=== PATIENT | female | born 1980 | race Caucasian/White ===

== ENCOUNTER 2021-07-18 07:52 | Emergency (ER) | payer BC ==
[2021-07-18] MEDS ORDERED: SODIUM CHLORIDE 0.9% 1,000 ML IV STA (08:31)
[2021-07-18] MEDS ORDERED: SODIUM CHLORIDE 0.9% 50 ML IVPB ONE (09:00)
[2021-07-18] MEDS ORDERED: BAMLANIVIMAB (EUA) 700 MG, ETESEVIMAB (EUA) 1,400 MG in SODIUM CHLORIDE 0.9% 50 ML IVPB ONE (09:30)
--- NOTE | 2021-07-18 09:32 | ED ---
SOB HPI - General Chief Complaint: Shortness of Breath Stated Complaint: Covid +, ELKIN Time Seen by Provider: 07/18/21 08:09 Source: patient, RN notes reviewed Mode of arrival: ambulatory Limitations: no limitations - History of Present Illness Initial Comments: Patient is a 40-year-old female with history of acid reflux, presenting to the emergency Department with complaints of worsening Covid symptoms. Patient states she tested positive for Covid 4 days ago, her symptoms started about one week ago. She has been having intermittent fevers, intermittent nausea, shortness of breath when she is trying to do her normal activities. She admits to mild cough, congestion. No chest pains, no vomiting, some mild diarrhea but that is since cleared. She states she has not taken any Tylenol Motrin for the fevers because she "wants to let it play out." She denies history of asthma or COPD, she is nonsmoker. Patient has no further complaints at this time. Upon arrival to the ER, her vital signs are normal. - Related Data Previous Rx's Medication Instructions Recorded Albuterol Inhaler [Ventolin Hfa 1 puff INHALATION RT-QID PRN #8 gm 07/18/21 Inhaler] Dexamethasone [Decadron] 6 mg PO DAILY 5 Days #5 tablet 07/18/21 Allergies Allergy/AdvReac Type Severity Reaction Status Date / Time No Known Allergies Allergy Verified 07/18/21 08:01 Review of Systems ROS Statement: Those systems with pertinent positive or pertinent negative responses have been documented in the HPI. ROS Other: All systems not noted in ROS Statement are negative. Past Medical History Additional Past Medical History / Comment(s): acid reflux History of Any Multi-Drug Resistant Organisms: None Reported Past Surgical History: Hernia Repair Past Psychological History: Anxiety Smoking Status: Never smoker Past Alcohol Use History: Occasional Past Drug Use History: None Reported General Exam - General Exam Comments Initial Comments: GENERAL: Patient is well-developed and well-nourished. Patient is nontoxic and in no acute distress. HEAD: Atraumatic, normocephalic. EYES: Pupils equal round and reactive to light, extraocular movements intact, sclera anicteric, conjunctiva are normal. Eyelids were unremarkable. ENT: Nares patent, oropharynx clear without exudates. Moist mucous membranes. NECK: Normal range of motion, supple without lymphadenopathy or JVD. LUNGS: Unlabored respirations. Breath sounds clear to auscultation bilaterally and equal. No wheezes rales or rhonchi. HEART: Regular rate and rhythm without murmurs, rubs or gallops. ABDOMEN: Soft, nontender, normoactive bowel sounds. No guarding, no rebound. No masses appreciated. MUSCULOSKELETAL: Normal extremities with adequate strength and normal range of motion, no pitting or edema. No clubbing or cyanosis. SKIN: Warm, Dry, normal turgor, no rashes or lesions noted. Limitations: no limitations Course Vital Signs 07/18/21 07/18/21 07/18/21 07:57 08:11 09:31 Temperature 98.4 F Pulse Rate 60 Respiratory 18 19 Rate Blood Pressure 122/85 O2 Sat by Pulse 88 L 100 Oximetry 07/18/21 09:39 Temperature Pulse Rate Respiratory 18 Rate Blood Pressure 110/81 O2 Sat by Pulse 100 Oximetry Medical Decision Making - Medical Decision Making Patient is a 40-year-old female with worsening viral type symptoms over the past week. She tested positive for Covid 4 days ago, symptoms began 7 days ago. Her vital signs are completely stable, she did have initial pulse ox of 88% however she was wearing fake nails and upon recheck on , she is 100% of room air. Her exam is unremarkable, she does qualify for monoclonal antibodies, she did agree to this. She received these without adverse side effects. She is stable for discharge. Patient will be given a prescription for steroids and albuterol inhaler. She is agreeable to this plan of care. Return parameters were discussed with her and she verbalized understanding. She can follow up with her primary care. Case discussed with Dr. Hughes. Disposition Clinical Impression: COVID-19 Disposition: HOME SELF-CARE Condition: Stable Instructions (If sedation given, give patient instructions): Coronavirus Disease 2019 (COVID-19) Additional Instructions: Please return to the Emergency Department if symptoms worsen or any other concerns. Take medications as prescribed. Take Tylenol Motrin for any fevers or body aches. Increase your fluid intake. Follow-up with your primary care. Prescriptions: Dexamethasone [Decadron] 6 mg PO DAILY 5 Days #5 tablet Albuterol Inhaler [Ventolin Hfa Inhaler] 1 puff INHALATION RT-QID PRN #8 gm PRN Reason: Shortness Of Breath Is patient prescribed a controlled substance at d/c from ED?: No Referrals: Amilcar Jordan MD [Primary Care Provider] - 1-2 days Time of Disposition: 10:41
--- NOTE | 2021-07-18 09:36 | XR ---
EXAMINATION TYPE: XR chest 1V portable DATE OF EXAM: 07/18/2021 Comparison: None Clinical History: 40-year-old female covid +, cough x 1 wk Findings: Some type of electronic device projects over the left mid lung. Heart normal size. There is hyperinfl ation. Hazy lower lung densities related to overlying soft tissue. Otherwise, no consolidation or ple ural effusion. Impression: COPD. No definite acute process.
[2021-07-18 09:40] VITALS: RESP 18
[2021-07-18 11:38] VITALS: BP 117/71; PULSE 71; TEMP 98.7
== END 2021-07-18 11:37 | disposition home or self-care (01) ==
LOC: EC 07:52
DX: U07.1 COVID-19 (principal)
CPT/HCPCS: 71045; 99284; 96365; 96366; J3490

== ENCOUNTER → 2022-09-03 | Outpatient (CLI) | payer OTHER ==
[2022-09-03 10:42] VITALS: BP 132/76; PULSE 66; RESP 16
--- NOTE | 2022-09-03 11:18 | P.GSHP ---
History of Present Illness H&P Date: 09/03/22 Stefany is a 41 year old white female seen in consultation for Dr. Jordan regarding an abnormal left breast mammogram done on 07-14-22. The patient has bilateral silicone implants. She has extensive bilateral underlying nodularity. The nodularity is felt to be most likely benign however some fluctuation occurred such as posterior central left MLO view in the posterior left CC view. Therefore precautionary 6 month left breast mammogram was recommended. The patient is not complaining of any new lumps masses or nodules of concern in either breast. This was a routine mammogram. The patient has not had any surgery other than the breast implants on her breast. She is not complaining of any recent trauma or infection in the breast. She is not complaining of any nipple discharge or skin changes. Caffiene: 3 cups/day; used to drink pop and coffee but stopped 6 months ago secondary to reflux, she did not note any changes in her breast Nicotine:stopped 4 years ago used to smoke for 20 years / chocolate: occasional BCP: 10 years ago stopped used them for 3 years Family History: mother: lung and bladder cancer brother: sarcoma maternal grandmother: lung cancer 2 maternal aunts: lung cancer Hormonal History: menarche: 14 M2, breast fed: yes, age at first : 23 periods regular, heavy LMP: ending today Surgical History: Umbilical hernia repair Medical history: Negative Social history: Nicotine: Stopped 40 years ago used to smoke 1 pack per day for 20 years Alcohol: Occasional; weekly 3-4 glasses of wine Marijuana: Negative - Constitutional Constitutional: Denies chills, Denies fever - EENT Eyes: bilateral pain, denies blurred vision Ears: deny: decreased hearing, tinnitus Ears, nose, mouth and throat: Denies headache, Denies sore throat - Breasts Comment: implants are not bothering her; she has had them for 4 years; they are silicone gel implants Breasts: bilateral: as per HPI - Cardiovascular Cardiovascular: Denies chest pain, Denies shortness of breath - Respiratory Respiratory: Denies cough, Denies 7 - Gastrointestinal Gastrointestinal: Denies abdominal pain, Denies diarrhea, Denies nausea, Denies vomiting - Genitourinary (Female) Genitourinary: Reports kidney stones, Denies dysuria, Denies hematuria - Menstruation Menstruation: Reports as per HPI - Musculoskeletal Musculoskeletal: Denies myalgias - Integumentary Integumentary: Denies pruritus, Denies rash - Neurological Neurological: Denies numbness, Denies weakness - Psychiatric Psychiatric: Reports anxiety, Denies depression - Endocrine Endocrine: Denies fatigue, Denies weight change - Hematologic/Lymphatic Comment: blood in urine has seen a urologist - Allergic/Immunologic Allergic/Immunologic: Reports as per HPI, Reports seasonal allergies Past Medical History Additional Past Medical History / Comment(s): acid reflux History of Any Multi-Drug Resistant Organisms: None Reported Past Surgical History: Hernia Repair Past Psychological History: Anxiety Smoking Status: Former smoker Past Alcohol Use History: Occasional Past Drug Use History: None Reported Medications and Allergies Home Medications Medication Instructions Recorded Confirmed Type No Known Home Medications 09/03/22 09/03/22 History Allergies Allergy/AdvReac Type Severity Reaction Status Date / Time azithromycin AdvReac Nausea Unverified 09/03/22 10:37 Surgical - Exam Vital Signs Pulse Resp BP Pulse Ox 66 16 132/76 99 09/03/22 10:37 09/03/22 10:37 09/03/22 10:37 09/03/22 10:37 - General no distress - Eyes normal ocular movement - Neck trachea midline - Respiratory normal respiratory effort, clear to auscultation - Cardiovascular Rhythm: regular Heart Sounds: normal: S1, S2 - Abdomen Abdomen: soft, non tender, no guarding, no rigid, no rebound - Integumentary normal turgor - Neurologic no disoriented, no combative - Musculoskeletal normal gait, normal posture - Psychiatric oriented to time, oriented to person, oriented to place, speech is normal, memory intact Breast Exam: BRA: 34DD Inspection: Lateral grade 1 ptosis Palpation: Right breast: Implant in place, well-healed scar, no dominant masses or nodules of concern Right axilla: No adenopathy of concern Left breast: Implant in place, well-healed scar, no dominant masses or nodules of concern Left axilla: No adenopathy of concern Results mammogram personally reviewed Assessment and Plan Assessment: Impression: Patient recent bilateral mammogram on six-month follow-up left breast mammogram recommended for fluctuating nodularity, no lesions of concern noted in the right breast. Patient noted to have bilateral silicone implants Fibrocystic breast changes Family history of cancer Plan: Repeat left breast mammogram 6 months/ December from last one with follow-up at that time Patient to follow up sooner any questions or concerns Patient encouraged to continue stopping smoking, and avoiding caffeine Cc: Dr. Jordan
== END ==
LOC: WWCWWP 10:06
PROVIDERS: ATTEND Surgery
DX: R92.8 Other abnormal and inconclusive findings on diagnostic imaging of breast (principal); K21.9 Gastro-esophageal reflux disease without esophagitis; Z87.891 Personal history of nicotine dependence; Z88.1 Allergy status to other antibiotic agents

== ENCOUNTER → 2023-01-19 | Outpatient (CLI) | payer OTHER ==
--- NOTE | 2023-01-19 08:50 | MM ---
Reason for Exam: Follow-up at short interval from prior study. Last screening mammogram was performed 6 month(s) ago. Patient History: Menarche at age 14. First Full-Term at age 23. Premenopausal. Currently using Hormonal Contraceptives, starting at age 41. 2018, Bilateral Implants. Risk Values: Shaila 5 year model risk: 0.6%. NCI Lifetime model risk: 8.0%. Prior Study Comparison: 04/24/2021 Bilateral Diagnostic Mammogram, [facility]. 11/19/2021 Bilateral Diagnostic Mammogram, [facility]. 07/14/2022 Bilateral Diagnostic Mammogram, [facility]. Tissue Density: Left: The breast tissue is heterogeneously dense. This may lower the sensitivity of mammography. Findings: Analyzed By CAD. Focal asymmetry left breast lateral aspect 6 cm from nipple measuring 11 mm. No new suspicious masses, calcifications or distortions. Focal asymmetry left breast lateral aspect 6 cm from nipple measuring 11 mm. Bilateral breast implant appears intact. No new suspicious masses, calcifications or distortions. Overall Assessment: Incomplete: need additional imaging evaluation, BI-RAD 0 Management: Diagnostic Breast Ultrasound of the left breast. Results were given to the patient verbally at the time of exam. Patient should continue monthly self-breast exams. A clinical breast exam by your physician is recommended on an annual basis. This exam should not preclude additional follow-up of suspicious palpable abnormalities. Note on Shaila scores and lifetime risk: 1. A Shaila score greater than 3% is considered moderate risk. If this is the case, consider specialist referral to assess eligibility for a risk reducing agent. 2. If overall lifetime risk for the development of breast cancer is 20% or higher, the patient may qualify for future screening with alternating mammogram and breast MRI. Electronically signed and approved by: Amilcar Long DO
--- NOTE | 2023-01-19 08:51 | USB ---
Reason for Exam: Follow-up at short interval from prior study. Patient History: Menarche at age 14. First Full-Term at age 23. Premenopausal. Currently using Hormonal Contraceptives, starting at age 41. 2018, Bilateral Implants. Risk Values: Shaila 5 year model risk: 0.6%. NCI Lifetime model risk: 8.0%. Prior Study Comparison: 04/24/2021 Bilateral Diagnostic Mammogram, [facility]. 11/19/2021 Bilateral Diagnostic Mammogram, [facility]. 07/14/2022 Bilateral Diagnostic Mammogram, [facility]. Findings: The lateral section of the breast of the left breast, the medial section of the breast of the left breast, the axilla of the left breast and the retroareolar of the left breast were scanned. Electronically signed and approved by: Amilcar Long DO
== END | disposition home or self-care (01) ==
LOC: RADMAMWWP 07:37
PROVIDERS: ATTEND Surgery
DX: N60.02 Solitary cyst of left breast (principal); N64.89 Other specified disorders of breast
CPT/HCPCS: 77061; 77065

== ENCOUNTER → 2023-02-25 | Outpatient (CLI) | payer OTHER ==
--- NOTE | 2023-02-17 16:12 | P.PN ---
Progress Note - Text Progress Note Date: 02/17/23 The patient's appointment was canceled today secondary to being called for emergency surgery. Her mammogram and ultrasound of the left breast were performed on and were felt to be benign BIRADS 2. She is due for bilateral mammogram in June 2023. I called the patient with the results however she is concerned that she feels some changes in her breast and would like to be rescheduled for another appointment. This will be done in the near future.
[2023-02-25 07:58] VITALS: BP 126/84; PULSE 68; RESP 16; TEMP 97.9
--- NOTE | 2023-02-25 08:12 | P.PN ---
Subjective Progress Note Date: 02/25/23 Principal diagnosis: Fibrocystic breast disease Stefany is a 42 year old white female seen in consultation for Dr. Jordan on 09-03-22 regarding an abnormal left breast mammogram done on 07-14-22. The patient has bilateral silicone implants. She has extensive bilateral underlying nodularity. The nodularity is felt to be most likely benign however some fluctuation occurred such as posterior central left MLO view in the posterior left CC view. Therefore precautionary 6 month left breast mammogram was recommended. The patient was not complaining of any new lumps masses or nodules of concern in either breast. This was a routine mammogram. The patient had not had any surgery other than the breast implants on her breast. She was not complaining of any recent trauma or infection in the breast. She was not complaining of any nipple discharge or skin changes. Left breast mammogram and ultrasound repeated on felt to be benign BIRADS 2. At this time she continues to have some nodularity in the lower inner portion of the left breast that this is not changed. Shaila five-year model risk: 0.6% NCI lifetime risk: 8% Caffiene: 3 cups/day; used to drink pop and coffee but stopped 6 months ago secondary to reflux, she did not note any changes in her breast Nicotine:stopped 4 years ago used to smoke for 20 years 1/PPD chocolate: occasional BCP: 10 years ago stopped used them for 3 years Family History: mother: lung and bladder cancer brother: sarcoma maternal grandmother: lung cancer 2 maternal aunts: lung cancer Hormonal History: menarche: 14 M2, breast fed: yes, age at first : 23 periods regular, heavy LMP: ending today Surgical History: Umbilical hernia repair Medical history: Negative Social history: Nicotine: Stopped 40 years ago used to smoke 1 pack per day for 20 years Alcohol: Occasional; weekly 3-4 glasses of wine Marijuana: Negative - Constitutional Constitutional: Denies chills, Denies fever - EENT Eyes: bilateral pain, denies blurred vision Ears: deny: decreased hearing, tinnitus Ears, nose, mouth and throat: Denies headache, Denies sore throat - Breasts Comment: implants are not bothering her; she has had them for 4 years; they are silicone gel implants Breasts: bilateral: as per HPI - Cardiovascular Cardiovascular: Denies chest pain, Denies shortness of breath - Respiratory Respiratory: Denies cough - Gastrointestinal Gastrointestinal: Denies abdominal pain, Denies diarrhea, Denies nausea, Denies vomiting - Genitourinary (Female) Genitourinary: Reports kidney stones, Denies dysuria, Denies hematuria - Menstruation Menstruation: Reports as per HPI - Musculoskeletal Musculoskeletal: Denies myalgias - Integumentary Integumentary: Denies pruritus, Denies rash - Neurological Neurological: Denies numbness, Denies weakness - Psychiatric Psychiatric: Reports anxiety, Denies depression - Endocrine Endocrine: Denies fatigue, Denies weight change - Hematologic/Lymphatic Comment: blood in urine has seen a urologist - Allergic/Immunologic Allergic/Immunologic: Reports as per HPI, Reports seasonal allergies Past Medical History Additional Past Medical History / Comment(s): acid reflux History of Any Multi-Drug Resistant Organisms: None Reported Past Surgical History: Hernia Repair Past Psychological History: Anxiety Smoking Status: Former smoker Past Alcohol Use History: Occasional Past Drug Use History: None Reported Medications and Allergies Home Medications Medication Instructions Recorded Confirmed Type No Known Home Medications 09/03/22 09/03/22 History Allergies Allergy/AdvReac Type Severity Reaction Status Date / Time azithromycin AdvReac Nausea Unverified 09/03/22 10:37 Objective - Constitutional General appearance: Present: cooperative - EENT Eyes: Present: EOMI ENT: Present: hearing grossly normal - Neck Neck: Present: normal ROM - Respiratory Respiratory: bilateral: CTA - Cardiovascular Rhythm: regular Heart sounds: normal: S1, S2 - Integumentary Integumentary Comment(s): Nevi over her chest and back, nevus mid lower back dark and have recommended this be removed Integumentary: Present: normal turgor - Musculoskeletal Musculoskeletal: Present: gait normal - Psychiatric Psychiatric: Present: A&O x's 3, appropriate affect, intact judgment & insight - Additional findings Additional findings: Breast Exam: BRA: 34DD Inspection: Lateral grade 1 ptosis Palpation: Right breast: Implant in place, well-healed scar, no dominant masses or nodules of concern Right axilla: No adenopathy of concern Left breast: Implant in place, well-healed scar, no dominant masses or nodules of concern Left axilla: No adenopathy of concern Assessment and Plan Assessment: Impression: Patient recent bilateral mammogram on six-month follow-up left breast mammogram recommended for fluctuating nodularity, no lesions of concern noted in the right breast, repeat left breast mammogram on and left breast ultrasound benign BIRADS 2 Patient noted to have bilateral silicone implants Fibrocystic breast changes Family history of cancer Dark nevus mid back Plan: Repeat bilateral mammogram June 2023 with appointment at that time Excision nevus mid back We have talked about the patient seen a database administration associate she will consider this Patient to follow up sooner any questions or concerns has decreased caffeine intake will consider stopping Cc: Dr. Jordan Additional CC's: Amilcar Jordan
== END ==
LOC: WWCWWP 07:43
PROVIDERS: ATTEND Surgery
DX: N60.12 Diffuse cystic mastopathy of left breast (principal); N63.24 Unspecified lump in the left breast, lower inner quadrant; K21.9 Gastro-esophageal reflux disease without esophagitis; D22.5 Melanocytic nevi of trunk; Z87.891 Personal history of nicotine dependence; Z88.1 Allergy status to other antibiotic agents

== ENCOUNTER → 2023-07-18 | Outpatient (CLI) | payer OTHER ==
--- NOTE | 2023-07-18 09:53 | MM ---
Reason for Exam: Screening (asymptomatic). Last screening mammogram was performed 12 month(s) ago. Patient History: Menarche at age 14. First Full-Term at age 23. Premenopausal. Patient has history of breast feeding. Currently using Hormonal Contraceptives, starting at age 41. 2018, Bilateral Implants. Risk Values: Shaila 5 year model risk: 0.6%. NCI Lifetime model risk: 8.0%. Prior Study Comparison: 11/19/2021 Bilateral Diagnostic Mammogram, [facility]. 07/14/2022 Bilateral Diagnostic Mammogram, [facility]. 01/19/2023 Left MG 3D diag mammo w/cad LT, [facility]. Tissue Density: The breast tissue is heterogeneously dense. This may lower the sensitivity of mammography. Findings: Analyzed By CAD. Bilateral breast implants appear intact. There is no suspicious group of microcalcifications or new suspicious mass. Benign-appearing calcifications bilaterally. Overall Assessment: Benign, BI-RAD 2 Management: Screening Mammogram of both breasts in [address] [facility] will attempt to contact patient to return for supplemental views and ultrasound if indicated. Patient should continue monthly self-breast exams. A clinical breast exam by your physician is recommended on an annual basis. This exam should not preclude additional follow-up of suspicious palpable abnormalities. Note on Shaila scores and lifetime risk: 1. A Shaila score greater than 3% is considered moderate risk. If this is the case, consider specialist referral to assess eligibility for a risk reducing agent. 2. If overall lifetime risk for the development of breast cancer is 20% or higher, the patient may qualify for future screening with alternating mammogram and breast MRI. Electronically signed and approved by: Amilcar Long DO
== END | disposition home or self-care (01) ==
LOC: RADMAMWWP 08:42
PROVIDERS: ATTEND Surgery
DX: Z12.31 Encounter for screening mammogram for malignant neoplasm of breast (principal); Z98.82 Breast implant status
CPT/HCPCS: 77063; 77067

== ENCOUNTER → 2023-07-29 | Outpatient (CLI) | payer OTHER ==
--- NOTE | 2023-07-29 09:14 | P.PN ---
Subjective Progress Note Date: 07/29/23 Principal diagnosis: fibrocystic breast changes/mole Fibrocystic breast disease Stefany is a 42 year old white female seen in consultation for Dr. Jordan on 09-03-22 regarding an abnormal left breast mammogram done on 07-14-22. The patient has bilateral silicone implants. She has extensive bilateral underlying nodularity. The nodularity is felt to be most likely benign however some fluctuation occurred such as posterior central left MLO view in the posterior left CC view. Therefore precautionary 6 month left breast mammogram was recommended. The patient was not complaining of any new lumps masses or nodules of concern in either breast. This was a routine mammogram. The patient had not had any surgery other than the breast implants on her breast. She was not complaining of any recent trauma or infection in the breast. She was not complaining of any nipple discharge or skin changes. [place] [id number] felt to be benign BIRADS 2. At this time she continues to have some nodularity in the lower inner portion of the left breast that this is not changed. 07-29-23 Bilateral mammogram [id number] benign BIRADS 2; she is not complaining of any new lumps masses or nodules of concern in either breast. Shaila five-year model risk: 0.6% NCI lifetime risk: 8% Caffiene: 1 cup/day, and 40 OZ of pop a day Nicotine:stopped 5 years ago used to smoke for 20 years 1/PPD chocolate: occasional BCP: 11 years ago stopped used them for 3 years Family History: mother: lung and bladder cancer brother: sarcoma maternal grandmother: lung cancer 2 maternal aunts: lung cancer Hormonal History: menarche: 14 M2, breast fed: yes, age at first : 23 periods regular, heavy LMP: ending today Surgical History: Umbilical hernia repair Medical history: started taking an inhaler after an illness several months ago Social history: Nicotine: Stopped 40 years ago used to smoke 1 pack per day for 20 years Alcohol: Occasional; weekly 3-4 glasses of wine Marijuana: Negative - Constitutional Constitutional: Denies chills, Denies fever - EENT Eyes: bilateral pain, denies blurred vision Ears: deny: decreased hearing, tinnitus Ears, nose, mouth and throat: Denies headache, Denies sore throat - Breasts Comment: implants are not bothering her; she has had them for 4 years; they are silicone gel implants Breasts: bilateral: as per HPI - Cardiovascular Cardiovascular: Denies chest pain, Denies shortness of breath - Respiratory Respiratory: Denies cough - Gastrointestinal Gastrointestinal: Denies abdominal pain, Denies diarrhea, Denies nausea, Denies vomiting - Genitourinary (Female) Genitourinary: Reports kidney stones, Denies dysuria, Denies hematuria - Menstruation Menstruation: Reports as per HPI - Musculoskeletal Musculoskeletal: Denies myalgias - Integumentary Integumentary: Denies pruritus, Denies rash - Neurological Neurological: Denies numbness, Denies weakness - Psychiatric Psychiatric: Reports anxiety, Denies depression - Endocrine Endocrine: Denies fatigue, Denies weight change - Hematologic/Lymphatic Comment: blood in urine has seen a urologist - Allergic/Immunologic Allergic/Immunologic: Reports as per HPI, Reports seasonal allergies Past Medical History Additional Past Medical History / Comment(s): acid reflux History of Any Multi-Drug Resistant Organisms: None Reported Past Surgical History: Hernia Repair Past Psychological History: Anxiety Smoking Status: Former smoker Past Alcohol Use History: Occasional Past Drug Use History: None Reported Medications and Allergies Home Medications Medication Instructions Recorded Confirmed Type No Known Home Medications 09/03/22 09/03/22 History Allergies Allergy/AdvReac Type Severity Reaction Status Date / Time azithromycin AdvReac Nausea Unverified 09/03/22 10:37 Objective - Constitutional General appearance: Present: cooperative - EENT Eyes: Present: EOMI ENT: Present: hearing grossly normal - Neck Neck: Present: normal ROM - Respiratory Respiratory: bilateral: CTA - Cardiovascular Heart sounds: normal: S1, S2 - Integumentary Integumentary Comment(s): Nevi over her chest and back, nevus mid lower back dark and have recommended this be removed Integumentary: Present: normal turgor - Musculoskeletal Musculoskeletal: Present: gait normal - Psychiatric Psychiatric: Present: A&O x's 3, appropriate affect, intact judgment & insight - Additional findings Additional findings: Breast Exam: BRA: 34DD Inspection: Lateral grade 1 ptosis Palpation: Right breast: Implant in place, well-healed scar, no dominant masses or nodules of concern Right axilla: No adenopathy of concern Left breast: Implant in place, well-healed scar, no dominant masses or nodules of concern Left axilla: No adenopathy of concern Assessment and Plan Assessment: Plan: Repeat bilateral mammogram June 2024 with appointment at that time Excision nevus mid back We have talked about the patient seen a an/syq 13 nav/c2 operator she will consider this Patient to follow up sooner any questions or concerns has decreased caffeine intake will consider stopping Cc: Dr. Jordan Procedure note: Following informed consent, The nevus of concern on the back was prepped using Betadine One percent lidocaine was used to anesthetize the area of concern, wide excision was performed. This skin was closed using a 3-0 nylon suture. The size was approximately 1 cm. The patient tolerated procedure in stable condition. She'll follow up in 2 weeks for suture removal
[2023-07-29 09:27] VITALS: RESP 18
== END ==
LOC: WWCWWP 08:43
PROVIDERS: ATTEND Surgery
DX: R92.8 Other abnormal and inconclusive findings on diagnostic imaging of breast (principal)

== ENCOUNTER → 2023-08-11 | Outpatient (CLI) | payer OTHER ==
--- NOTE | 2023-08-11 08:46 | P.PN ---
Progress Note - Text Progress Note Date: 08/11/23 Stefany is status post excision of a nevis from her back on 07-29-23. Her pathology was compound nevis margins negative. Patient is doing well postoperatively. Incision: Clean and dry Sutures removed Steri-Strips applied Impression: Patient doing well Plan: Repeat bilateral mammogram in June 2024 with appointment at that time Patient is going to consider seeing a air director Patient will follow-up sooner any questions or concerns Cc: Dr. Jordan
[2023-08-11 08:47] VITALS: BP 140/90; PULSE 71; RESP 17; TEMP 98
== END ==
LOC: WWCWWP 08:34
PROVIDERS: ATTEND Surgery
DX: Z12.31 Encounter for screening mammogram for malignant neoplasm of breast (principal); Z88.1 Allergy status to other antibiotic agents